=== PATIENT | male | born 1980 | race Caucasian/White ===

== ENCOUNTER 2022-04-26 13:31 | Emergency (ER) | payer OTHER, SELFPAY ==
[2022-04-26 13:46] VITALS: BP 148/92; PULSE 104; RESP 18; TEMP 36.5; O2SAT 96
--- NOTE | 2022-04-26 13:59 | ED.GENADULT ---
HPI - General Adult General Chief complaint: Skin/Abscess/Foreign Body Stated complaint: rash Time Seen by Provider: 04/26/22 13:37 History of Present Illness HPI narrative: 41 y/o male. PMHx Non-contributory. Presents to [facility] clinic today with complaints of painful and pruritic rash located to RT mid-back. He describes a prodromal period of burning type pain prior to rash eruption. Now, with clear discharge from some sites. No facial or ocular involvement. No wheezing or dyspnea. No additional areas of integumentary concerns. Related Data Allergies Allergy/AdvReac Type Severity Reaction Status Date / Time No Known Allergies Allergy Verified 04/26/22 13:55 Review of Systems Review of Systems: CONSTITUTIONAL: Denies fever, chills, sweats. EYES: Denies visual changes, redness, discharge. ENT: Denies rhinorrhea, congestion, sore throat, otalgia. CARDIOVASCULAR: Denies chest pain, palpitations, edema. RESPIRATORY: Denies dyspnea, wheezing, cough GASTROINTESTINAL: Denies abdominal pain, nausea, vomiting, diarrhea. GENITOURINARY: Denies dysuria, hematuria, abnormal discharge SKIN: Positive rash & itching back/torso. MUSCULOSKELETAL: Denies acute back pain, joint pain, or myalgia. NEUROLOGIC: Denies numbness, or focal weakness. PSYCHIATRIC: Denies anxiety or depression. [facility] Social History Social History Alcohol intake: current Exam Narrative: GENERAL: This is a well-nourished, well-developed adult, in no apparent distress. HEAD: normocephalic, atraumatic. EYES: PERRL. Sclera clear/white. EARS: External ears normal, auditory canals clear and without drainage, TMs normal. NOSE: External nose normal. THROAT: Mucous membranes moist, posterior pharynx clear. No exudates. NECK: Neck supple, non-tender without lymphadenopathy, masses or thyromegaly. CARDIOVASCULAR: Regular rate and rhythm without murmurs, gallops, or rubs. RESPIRATORY: Clear to auscultation. Breath sounds equal bilaterally. No wheezes, rales, or rhonchi. GASTROINTESTINAL: Abdomen soft, non-tender, nondistended. Bowel sounds are active. No guarding. SKIN: warm, intact, good texture and turgor. With small, patchy, and erythematous rash following T8 dermatome RT torso, mid-back extending to front torso. Clustered vesicles with crustation and clear discharge. No additional areas of integumentary involvement. NEURO: Alert, active, and age appropriate. No focal neurologic deficits. EXTREMITIES: Negative. Course Course Level of Care: Express Care Visit Vital Signs Vital signs: Vital Signs Temperature 36.5 C 04/26/22 13:46 Pulse Rate 104 H 04/26/22 13:46 Respiratory Rate 18 04/26/22 13:46 Blood Pressure 148/92 H 04/26/22 13:46 Pulse Oximetry 96 04/26/22 13:46 Oxygen Delivery Room Air 04/26/22 13:46 Temperature 36.5 C 04/26/22 13:46 Pulse Rate 104 H 04/26/22 13:46 Respiratory Rate 18 04/26/22 13:46 Blood Pressure 148/92 H 04/26/22 13:46 Pulse Oximetry 96 04/26/22 13:46 Oxygen Delivery Room Air 04/26/22 13:46 The patient has been informed that they may have pre-hypertension or Hypertension based on a BP reading in the clinic. It is recommended that the patient call the primary care provider listed on their discharge instructions or a physician of their choice as soon as possible (within 1-2week) to arrange follow up for further evaluation of possible pre-hypertension or hypertension. Medical Decision Making MDM Narrative Medical decision making narrative: -Physical exam is consistent w/Herpes Zoster. -Antiviral as directed. -PRN symptomatic relief. -Hand hygiene and contact transmission reviewed. -PCP F/U 1 WK. -ER W/Emergent status changes. Pt agrees. Differential Diagnosis Differential Diagnosis: Differential Diagnosis: Consideration of the following conditions may be warranted for the presenting problem, they are not fi
== END 2022-04-26 14:01 | disposition home or self-care (01) ==
PROVIDERS: Emergency Provider Nurse Practitioner Adult Health
DX: B02.9 Zoster without complications (principal)
CPT/HCPCS: 99213; G0463

== ENCOUNTER 2023-08-13 16:26 | Emergency (ER) | payer OTHER, SELFPAY ==
[2023-08-13 16:39] VITALS: BP 133/88; PULSE 98; RESP 18; TEMP 36.3; O2SAT 99
--- NOTE | 2023-08-13 17:14 | ED.URI ---
HPI - URI/Sore Throat General Chief Complaint: Upper Respiratory Infection Stated Complaint: cold/flu symptoms Time Seen by Provider: 08/13/23 17:05 Source: patient and RN notes reviewed Mode of arrival: ambulatory Limitations: no limitations History of Present Illness HPI Narrative: Patient presents today with a 3 day history of cough, fatigue, chest congestion, postnasal drip, nasal congestion. Denies fever, sore throat. He took a home COVID test yesterday that was negative. He has been taking NyQuil and Mucinex with mild relief. Denies history of asthma or COPD. Smokes 1 pack per day. Related Data Home Medications Medication Instructions Recorded Confirmed No Home Medications 08/13/23 08/13/23 Allergies Allergy/AdvReac Type Severity Reaction Status Date / Time No Known Allergies Allergy Verified 08/13/23 16:50 Review of Systems Review of Systems: CONSTITUTIONAL: Denies body aches, fever, chills, or sweats.+ fatigue EYES: Denies visual changes, redness, or discharge. ENT: Denies rhinorrhea, sore throat, or otalgia.+ congestion, postnasal drip CARDIOVASCULAR: Denies chest pain, palpitations, or edema. RESPIRATORY: Denies dyspnea.+ cough, chest congestion GASTROINTESTINAL: Denies abdominal pain, nausea, vomiting, or diarrhea. GENITOURINARY: Denies dysuria or hematuria. SKIN: Denies rash, itching, or wounds. MUSCULOSKELETAL: Denies back pain, joint pain, or myalgia. NEUROLOGIC: Denies headache, numbness, tingling, or weakness. PSYCH: Denies depression or anxiety. [facility] Social History Social History (Updated 08/13/23 @ 17:15 by Eleonora Farmer, [facility], ) Smoking packs per day: 1 Smoking cigarettes per day: 20.0 Alcohol intake: current Comments At time of signature, I have reviewed and agree with nursing past medical, surgical, social and family history unless otherwise noted. Please see nursing chart for further information. There is no relevant family history pertinent to the presenting complaint Exam Narrative: GENERAL: Mildly ill-appearing, well-nourished, and in no acute distress. HEAD: Normocephalic, atraumatic. EYES: EOMI. No redness or drainage. Conjunctivae normal. ENT: Mucous membranes pink and moist. Nares clear. No rhinorrhea. TMs normal bilaterally. Throat normal. Uvula midline. NECK: Normal AROM. Supple. No lymphadenopathy. CHEST: No respiratory distress. Clear to auscultation. HEART: Regular rate and rhythm. No murmur appreciated. Normal peripheral pulses. EXTREMITIES: Normal range of motion. No edema. SKIN: Warm, dry, no rash. Capillary refill normal. Normal skin turgor. NEURO: No focal deficits. Alert and oriented x3. Gait steady. PSYCH: Normal affect. No signs of depression or anxiety. Course Course Level of Care: Express Care Visit Vital Signs Vital signs: Vital Signs Temperature 97.4 F L 08/13/23 16:39 Pulse Rate 98 08/13/23 16:39 Respiratory Rate 18 08/13/23 16:39 Blood Pressure 133/88 08/13/23 16:39 Pulse Oximetry 99 08/13/23 16:39 Oxygen Delivery Room Air 08/13/23 16:39 Temperature 97.4 F L 08/13/23 16:39 Pulse Rate 98 08/13/23 16:39 Respiratory Rate 18 08/13/23 16:39 Blood Pressure 133/88 08/13/23 16:39 Pulse Oximetry 99 08/13/23 16:39 Oxygen Delivery Room Air 08/13/23 16:39 Reviewed MDM - URI/Sore Throat MDM Narrative Medical decision making narrative: Influenza and COVID-19 are negative. Symptoms likely viral in etiology. No prescription medications for further testing indicated at this time. Anticipatory guidance given. Differential Diagnosis Differential diagnosis: Likely upper respiratory infection, viral infection, bronchitis, influenza and other (COVID-19) Lab Data Attestation: I reviewed the patient's lab results. Critical Care Time Critical Care Time Critical Care Time: No Discharge Plan Discharge Clinical Impression: Upper respiratory infection Qualifiers: URI type: un
== END 2023-08-13 17:32 | disposition home or self-care (01) ==
PROVIDERS: Emergency Provider Nurse Practitioner
DX: J06.9 Acute upper respiratory infection, unspecified (principal); Z20.822 Contact with and (suspected) exposure to COVID-19; F17.210 Nicotine dependence, cigarettes, uncomplicated
CPT/HCPCS: 87426; 87804; 99213; C9803; G0463